=== PATIENT | male | born 1960 | race Hispanic/Latino ===

== ENCOUNTER 2017-11-13 07:49 | Emergency (ER) | payer OTHER ==
[~2017-11-13] VITALS: Ht 175.3 cm; Wt 83.9 kg
[2017-11-13] MEDS ORDERED: KETOROLAC TROMETHAMINE 30 MG/ML VIAL IV STA (08:02)
[2017-11-13] MEDS ORDERED: ONDANSETRON HCL INJ 2 MG/ML VIAL IV STA (08:12)
[2017-11-13 08:17] LABS: BASOPHILS % 0.2 % (0.0-1.0); EOSINOPHILS % 0.2 % (0.0-6.0); HEMATOCRIT 47.7 % (38.2-49.6); LYMPHOCYTES # (AUTO) 2.3 (1.0-3.2); LYMPHOCYTES % 13.3 % (18.0-39.1); MEAN CORPUSCULAR HGB CONC 33.5 g/dL (31-35); MEAN CORPUSCULAR VOLUME 86.6 fL (81-99); MONOCYTES # (AUTO) 0.7 (0.2-0.8); MONOCYTES % 3.9 % (4.4-11.3); NEUTROPHILS # (AUTO) 14.2 (2.1-6.9); NEUTROPHILS % 81.9 % (38.7-80.0); PLATELET COUNT 190 x10e3/uL (140-360); RED BLOOD COUNT 5.51 x10e6/uL (4.3-5.7); RED CELL DISTRIBUTION WIDTH 13.2 % (11.7-14.4)
[2017-11-13 08:34] LABS: CALCIUM 9.4 mg/dL (8.4-10.2); CREATININE, SERUM 1.36 mg/dL (0.72-1.25)
[2017-11-13 08:47] LABS: INR 1.09; PROTHROMBIN TIME 13.3 seconds (11.9-14.5)
[2017-11-13 08:48] LABS: PARTIAL THROMBOPLASTIN TIME 31.2 seconds (23.8-35.5)
[2017-11-13 09:14] LABS: BILIRUBIN,URINE NEGATIVE (NEGATIVE); CLARITY,URINE CLEAR (CLEAR); COLOR,URINE YELLOW (YELLOW); KETONES,URINE NEGATIVE (NEGATIVE); LEUKOCYTE ESTERASE ,URINE NEGATIVE (NEGATIVE); NITRITE,URINE NEGATIVE (NEGATIVE); PROTEIN,URINE DIPSTICK TRACE (NEGATIVE); URINE UROBILINOGEN 0.2 mg/dL (0.2 - 1)
--- NOTE | 2017-11-13 09:15 | Diagnostic Imaging Report ---
EXAM: CT Abdomen and Pelvis WITHOUT contrast INDICATION: \S\Stone Protocol \S\Y COMPARISON: None. TECHNIQUE: Abdomen and pelvis were scanned utilizing a multidetector helical scanner from the lung base to the pubic symphysis without administration of IV contrast. Absence of intravenous contrast decreases sensitivity for detection of focal lesions and vascular pathology. Coronal and sagittal reformations were obtained. Routine protocol was performed. IV CONTRAST: None ORAL CONTRAST: Water COMPLICATIONS: None RADIATION DOSE: Total DLP: 436.95 mGy*cm Estimated effective dose: (DLP x 0.015 x size factor) mSv CTDIvol has been reviewed. It is below the limits set by the Radiation Protocol Committee (RPC). FINDINGS: LINES and TUBES: None. LOWER THORAX: Smooth interlobular septal thickening and groundglass opacities. Trace bilateral pleural effusions. Cardiomegaly. Partially visualized and ICD leads in the right atrium, right ventricle, and coronary sinus. Calcifications at the left ventricular apex may be related to prior infarction. HEPATOBILIARY: No focal hepatic lesions. No biliary ductal dilation. GALLBLADDER: No radio-opaque stones or sludge. No wall thickening. SPLEEN: No splenomegaly. PANCREAS: No focal masses or ductal dilatation. ADRENALS: No adrenal nodules KIDNEYS/URETERS: Mild right hydroureteronephrosis secondary to two adjacent stones at the ureterovesicular junction. The more distal stone measures 0.5 x 0.4 x 0.6 cm. The more proximal stone measures 0.4 x 0.3 x 0.5 cm. Associated right perinephric and periureteral stranding. No additional nonobstructing calculi in either kidney. No left ureteral calculi. No bladder calculi. No suspicious renal contour abnormalities. GI TRACT: No abnormal distention, wall thickening, or evidence of bowel obstruction. Appendix is normal. PELVIC ORGANS/BLADDER: Unremarkable. LYMPH NODES: No lymphadenopathy. 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 Scattered atherosclerotic calcifications. PERITONEUM / RETROPERITONEUM: No free air or fluid. BONES: L5 pars defects with grade 1 to 2 anterolisthesis of L5 on S1.. SOFT TISSUES: Unremarkable. IMPRESSION: 1. Two right ureteral calculi at the ureterovesicular junction result in upstream mild hydroureteronephrosis. 2. Interstitial edema and trace bilateral pleural effusions. Signed by: DR. David Goodwin MD on 11/13/2017 9:12 AM
[2017-11-13 09:32] LABS: CALCIUM OXALATE CRYSTALS,UR MODERATE (FEW); EPITHELIAL CELLS,URINE FEW /LPF; MUCUS,URINE MANY (RARE); WBC,URINE (MAN) 0-5 /HPF (0-5)
[2017-11-13 10:03] VITALS: BP 112/77
[2017-11-13] MEDS ORDERED: HYDROMORPHONE 1MG/1ML INJ IV STA (10:14)
[2017-11-13] MEDS ORDERED: ONDANSETRON HCL INJ 2 MG/ML VIAL IV ONE (11:00)
== END 2017-11-13 10:55 | disposition home or self-care (01) ==
LOC: ER 07:49
DX: R10.31 Right lower quadrant pain (principal); R11.2 Nausea with vomiting, unspecified; I10 Essential (primary) hypertension; E78.5 Hyperlipidemia, unspecified; I48.91 Unspecified atrial fibrillation; Z95.810 Presence of automatic (implantable) cardiac defibrillator
CPT/HCPCS: 36415; 74176; 80048; 81001; 85025; 85610; 85730; 99284; J1170; J1885; J2405

== ENCOUNTER → 2018-08-10 | Day surgery (SDC) | payer OTHER ==
[2018-08-05 11:34] LABS: BASOPHILS % 0.1 % (0.0-1.0); EOSINOPHILS # (AUTO) 0.1 (0.0-0.4); HEMATOCRIT 43.3 % (38.2-49.6); HEMOGLOBIN 14.1 g/dL (14.0-18.0); LYMPHOCYTES # (AUTO) 1.7 (1.0-3.2); MEAN CORPUSCULAR HEMOGLOBIN 29.1 pg (28-32); MEAN CORPUSCULAR HGB CONC 32.6 g/dL (31-35); MEAN CORPUSCULAR VOLUME 89.5 fL (81-99); MONOCYTES # (AUTO) 0.4 (0.2-0.8); MONOCYTES % 5.5 % (4.4-11.3); NEUTROPHILS # (AUTO) 4.5 (2.1-6.9); NEUTROPHILS % 68.1 % (38.7-80.0); PLATELET COUNT 166 x10e3/uL (140-360); RED BLOOD COUNT 4.84 x10e6/uL (4.3-5.7); RED CELL DISTRIBUTION WIDTH 13.5 % (11.7-14.4)
[~2018-08-10] MED LIST: AMIODARONE HCL200 MG; ATORVASTATIN CA20 MG PO; CLOPIDOGREL75 MG PO; FENTANYL CITRATE/PF 100MCG/2 ML INJ ONE; FUROSEMIDE40 MG PO; HYOSCYAMINE SULFATE 0.5 MG/ML INJ ONE; LIDOCAINE HCL 2% LOCAL INJ 5 ML SDV VIAL INJ ONE; LISINOPRIL2.5 MG PO; METOPROLOL SUCC50 MG PO; MIDAZOLAM HCL 2 MG/2 ML VIAL ONE; POTASSIUM CHLO10 ME1 PO; PROPOFOL IV EMULSION 10 MG/ML 50 ML VIAL ONE; XARELTO20 MG
--- OUTSIDE RECORDS SUMMARY | 2018-08-10 08:25 | XMS REPORT | Clinical Summary ---
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 (implantable cardioverter-defibrillato r), biventricular, in situ Active metoprolol succinate TAKE 1 AND 135 tablet 3 (TOPROL XL) 50 mg 1/2 TABLETS 8 extended release BY MOUTH tabletIndications: ICD DAILY (implantable cardioverter-defibrillato r), biventricular, in situ Active amiodarone (CORDARONE) Take two 90 tablet 3 200 mg tabletIndications: tablets every 8 ICD (implantable 12 hours for cardioverter-defibrillato a week, then r) in place one tablet daily. Active clopidogrel (PLAVIX) 75 Take 1 tablet 90 tablet 3 mg tabletIndications: S/P by mouth 8 angioplasty with stent daily. Active lisinopril (PRINIVIL, Take 1 tablet 90 tablet 3 ZESTRIL) 2.5 mg by mouth 8 tabletIndications: daily. Essential hypertension, benign Active atorvastatin (LIPITOR) 40 Take 1 tablet 90 tablet 3 mg tabletIndications: by mouth at 8 Hyperlipidemia, bedtime unspecified nightly. hyperlipidemia type 07/29/2019 Active furosemide (LASIX) 40 mg Take 1 tablet 90 tablet 3 tabletIndications: ICD by mouth 8 (implantable daily. cardioverter-defibrillato r), biventricular, in situ 07/29/2019 Active potassium chloride Take 2 180 tablet 3 (KLOR-CON M10) 10 mEq tablets by 8 extended release mouth daily tabletIndications: ICD When taking (implantable furosemide. cardioverter-defibrillato r), biventricular, in situ 07/29/2018 Discontinued aspirin 81 mg delayed Take 1 tablet 90 tablet 3 release by mouth 7 tabletIndications: daily. Essential hypertension, benign, Systolic congestive heart failure, unspecified congestive heart failure chronicity, Hyperlipidemia, unspecified hyperlipidemia type, S/P angioplasty with stent 11/18/2017 Discontinued metoprolol succinate Take 1 tablet 90 tablet 3 (TOPROL XL) 50 mg by mouth 7 extended release daily. tabletIndications: ICD (implantable cardioverter-defibrillato r), biventricular, in situ 06/06/2018 Discontinued lisinopril (PRINIVIL, Take 1 tablet 90 tablet 3 ZESTRIL) 2.5 mg by mouth 7 tabletIndications: daily. Essential hypertension, benign, Systolic congestive heart failure, unspecified congestive heart failure chronicity 06/06/2018 Discontinued clopidogrel (PLAVIX) 75 Take 1 tablet 90 tablet 3 mg tabletIndications: S/P by mouth 7 angioplasty with stent daily. 06/06/2018 Discontinued atorvastatin (LIPITOR) 40 Take 1 tablet 90 tablet 3 mg tabletIndications: by mouth at 7 Hyperlipidemia, bedtime unspecified nightly. hyperlipidemia type 12/07/2017 Discontinued metoprolol succinate Take 1.5 90 tablet 3 (TOPROL XL) 50 mg tablets by 8 extended release mouth daily. tabletIndications: ICD (implantable cardioverter-defibrillato r), biventricular, in situ 12/07/2017 Discontinued amiodarone (CORDARONE) Take two 90 tablet 3 200 mg tabletIndications: tablets every 8 ICD (implantable 12 hours for cardioverter-defibrillato a week, then r) in place one tablet daily. 06/06/2018 Discontinued amiodarone (CORDARONE) Take two 90 tablet 3 200 mg tabletIndications: tablets every 8 ICD (implantable 12 hours for cardioverter-defibrillato a week, then r) in place one tablet daily. 05/17/2018 Discontinued metoprolol succinate Take 1.5 90 tablet 3 (TOPROL XL) 50 mg tablets by 8 extended release mouth daily. tabletIndications: ICD (implantable cardioverter-defibrillato r), biventricular, in situ 02/25/2018 Discontinued rivaroxaban (XARELTO) 20 Take 1 tablet 90 tablet 1 mg tabletIndications: by mouth 8 Atrial flutter, daily (with unspecified type dinner). 07/29/2018 Discontinued furosemide (LASIX) 40 mg Take 1 tablet 90 tablet 3 tabletIndications: ICD by mouth 8 (implantable daily. cardioverter-defibrillato r), biventricular, in situ 07/29/2018 Discontinued potassium chloride Take 2 180 tablet 3 (KLOR-CON M10) 10 mEq tablets by 8 extended release mouth daily tabletIndications: ICD When taking (implantable furosemide. cardioverter-defibrillato r), biventricular, in situ Active Problems Problem Noted Date Coronary artery disease due to lipid rich plaque 05/23/2015 Essential hypertension, benign 05/23/2015 HLD (hyperlipidemia) 05/23/2015 Systolic congestive heart failure 05/23/2015 AICD (automatic cardioverter/defibrillator) present Inappropriate shocks from implantable cardioverter-defibrillator Ischemic cardiomyopathy Coronary artery disease involving huslia coronary artery of huslia heart without angina pectoris CAD S/P percutaneous coronary angioplasty ICD (implantable cardioverter-defibrillator) discharge Encounters Care Team Description Date Type Specialty Rhina Stoll MD ICD (implantable cardioverter-defibrillator), biventricular, in situ (Primary Dx) 07/29/2018 Office Visit Cardiology Lissett Payne MD ICD (implantable cardioverter-defibrillator) in place; S/P angioplasty with stent; Essential hypertension, benign; Hyperlipidemia, unspecified hyperlipidemia type; ICD (implantable cardioverter-defibrillator), biventricular, in situ; Atrial flutter, unspecified type 06/06/2018 Refill Cardiology Lissett Payne MD S/P angioplasty with stent; Essential hypertension, benign; Systolic congestive heart failure; ICD (implantable cardioverter-defibrillator) in place; Hyperlipidemia, unspecified hyperlipidemia type 06/02/2018 Refill Cardiology Gissell Linn MD ICD (implantable cardioverter-defibrillator), biventricular, in situ (Primary Dx) 05/27/2018 Office Visit Cardiology Lissett Payne MD ICD (implantable cardioverter-defibrillator), biventricular, in situ 05/17/2018 Refill Cardiology Rolf Greenberg Medication Refill (rivaroxaban (XARELTO) 20 needs to be E-scribed to [phone] [facility] - [address]) 03/11/2018 Telephone Cardiology Amy Culver Other (rivaroxaban (XARELTO) 20 mg tablet per pt [facility] sent dr cid an email, regarding medication since dr cid did not respond / [facility] did not fill. ) 03/09/2018 Telephone Cardiology Rhina Stoll MD Atrial flutter, unspecified type (Primary Dx); ICD (implantable cardioverter-defibrillator), biventricular, in situ 02/25/2018 Office Visit Cardiology Lissett Payne MD ICD (implantable cardioverter-defibrillator) in place; ICD (implantable cardioverter-defibrillator), biventricular, in situ 12/07/2017 Refill Cardiology Rolf Greenberg Medication Refill (metoprolol succinate (TOPROL XL) 50 mg,amiodarone (CORDARONE) 200 mg tablet to [facility] [phone]) 12/07/2017 Telephone Cardiology Rhina Stoll MD ICD (implantable cardioverter-defibrillator), biventricular, in situ 11/23/2017 Refill Amy Culver Medication Refill (amiodarone (CORDARONE) 150 mg); Medication Refill (metoprolol succinate (TOPROL XL) 50 mg extended release tablet); Other (per pt dr cid was starting him again on amiodarone / and dr payne was increaseing his metoprolol to 75 mg pt needs rx sent thru [facility] ) 11/23/2017 Telephone Cardiology Rhina Stoll MD ICD (implantable cardioverter-defibrillator) in place (Primary Dx) 11/19/2017 Office Visit Cardiology Lissett Payne MD ICD (implantable cardioverter-defibrillator), biventricular, in situ 11/18/2017 Office Visit Cardiology [place], DEBBIE Follow-up 11/01/2017 Telephone Cardiology Gissell Linn MD ICD (implantable cardioverter-defibrillator), biventricular, in situ (Primary Dx) 10/22/2017 Office Visit Cardiology after 08/09/2017 Immunizations Name Dates Previously Given Next Due Influenza Vaccine 07/18/2015 PPV 23 Pneumococcal 05/23/2015 Polysaccaride Family History Medical History Relation Name Comments Hypertension Father Stroke Father Cancer Maternal unk type Grandmother Diabetes neg hx Heart neg hx Lipids neg hx Relation Name Status Comments Father Alive Maternal Grandmother Mother Alive Social History Date Tobacco Use Types Packs/Day Years Used Quit: 05/23/1999 Former Smoker Cigarettes 0.5 10 Smokeless Tobacco: Never Used Tobacco Cessation: Counseling Given: No Alcohol Use Drinks/Week oz/Week Comments No Sex Assigned at Date Recorded Not on file Industry Job Start Date Occupation Not on file Not on file Not on file Travel End Travel History Travel Start No recent travel history available. Last Filed Vital Signs Time Taken Vital Sign Reading 07/29/2018 9:59 AM [employer] Blood Pressure 116/78 07/29/2018 9:59 AM [employer] SCH[employer]ER Pulse 62 07/29/2018 9:59 AM [employer] SCHED[employer]ER Temperature 36.6 C (97.8 F) 07/29/2018 9:59 AM CREW SCHEDULER Respiratory Rate 18 07/29/2018 9:59 AM CREW SCHEDULER Oxygen Saturation 99% - Inhaled Oxygen - Concentration 07/29/2018 9:59 AM CREW SCHEDULER Weight 85.7 kg (189 lb) 07/29/2018 9:59 AM CREW SCHEDULER Height 175.3 cm (5' 9") 07/29/2018 9:59 AM CREW SCHEDULER Body Mass Index 27.91 Plan of Treatment Care Team Description Date Type Specialty Lissett Payne MD [address] [place] [address] [phone] per [place] 09/01/2018 Office Visit Cardiology Health Maintenance Due Date Last Done Comments Colorectal Cancer Scrn 2009 Annual (FIT/FOBT) Age 50 to 75 CORONARY ARTERY DISEASE 05/29/2016 05/29/2015 AGE 18 AND UP IMM Influenza Seasonal 05/16/2018 Oct to October (>/=19 yrs) Procedures Comments Procedure Name Priority Date/Time Associated Diagnosis TSH Routine 03/02/2018 8:45 AM CDT LIVER PROFILE Routine 03/02/2018 Atrial flutter, 8:45 AM CDT unspecified type BMP POC Routine 02/25/2018 9:42 AM CDT after 08/09/2017 Results * TSH (03/02/2018 8:45 AM CDT) TSH 4.45 (H) 0.57 - 3.74 uIU/mL BT MAIN-STATION 1 Specimen Blood Performing Organization Address [facility] Phone Number MISYS BT MAIN-STATION 1 * LIVER PROFILE (03/02/2018 8:45 AM CDT) T Protein 6.9 6.0 - 8.3 g/dL BT MAIN-STATION 1 Albumin 4.4 4.2 - 5.5 g/dL BT MAIN-STATION 1 T Bilirubin 0.8 0.2 - 1.2 mg/dL BT MAIN-STATION 1 Alk Phos 69 34 - 104 U/L BT MAIN-STATION 1 AST 17 13 - 39 U/L BT MAIN-STATION 1 ALT 17 7 - 52 U/L BT MAIN-STATION 1 D Bilirubin 0.2 0.0 - 0.2 mg/dL BT MAIN-STATION 1 Specimen Blood Performing Organization Address [facility] Phone Number MISYS BT MAIN-STATION 1 * BMP POC (02/25/2018 9:42 AM CDT) CO2 POC 24 21 - 32 mmol/L BT MAIN-STATION 1 Chloride POC 104 98 - 107 mmol/L BT MAIN-STATION 1 Potassium POC 4.5 3.50 - 5.10 mmol/L BT MAIN-STATION 1 Sodium POC 138 136 - 145 mmol/L BT MAIN-STATION 1 Glucose POC 101 74 - 106 mg/dL BT MAIN-STATION 1 Urea Nitrogen 18 7 - 18 mg/dL BT MAIN-STATION POC 1 Creatinine POC 1.1 0.6 - 1.3 mg/dL BT MAIN-STATION 1 Calcium Ionized 1.09 (L) 1.15 - 1.29 mmol/L BT MAIN-STATION POC 1 Hemoglobin POC 16.3 14.0 - 18.0 g/dL BT MAIN-STATION 1 Hematocrit POC 48.0 40.0 - 54.0 % BT MAIN-STATION 1 GFR, Estimated >60 mL/min/1.73 m2 BT MAIN-STATION 1 GFR, Estim, >60 mL/min/1.73 m2 BT MAIN-STATION Afr-Am 1 Performing Organization Address City/State/Zipcode Phone Number MISYS BT MAIN-STATION 1 after 08/09/2017 Insurance Type Payer Benefit Subscriber ID Effective Phone Address Plan / Dates Group [facility] xxxxxxxxx 2017-P [phone] [id number] [place] [address] Advance Directives For more information, please contact: [address] [address] Date Inactivated Comments Code Status Date Activated 10/24/2015 2:00 PM Full Code 10/23/2015 12:35 AM
--- OUTSIDE RECORDS SUMMARY | 2018-08-10 08:25 | XMS REPORT ---
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 Allergies, Adverse Reactions, Alerts This patient has no known allergies or adverse reactions. Medications This patient has no known medications. Encounters Start Date/Time End Date/Time Encounter Type Admission Type Attending [facility] Care Facility Care Department Encounter ID 2018-09-01 00:00:00 2018-09-01 00:00:[address] [facility] [id number] 2018-07-29 09:52:50 2018-07-29 09:52:[address] [facility] [id number] 2018-06-24 00:00:00 2018-06-24 00:00:[address] [facility] [id number] 2018-05-27 06:47:31 2018-05-27 06:47:[address] [facility] [id number] 2018-03-11 00:00:00 2018-03-11 00:00:[address] [facility] [id number] 2018-03-02 08:43:22 2018-03-02 08:43:[address] [facility] [id number] 2018-02-25 08:07:13 2018-02-25 08:07:[address] [facility] [id number] 2018-02-25 00:00:00 2018-02-25 00:00:[address] [facility] [id number] 2017-11-26 00:00:00 2017-11-26 00:00:[address] [facility] [id number] 2017-11-19 09:33:36 2017-11-19 09:33:[address] [facility] [id number] 2017-11-18 09:31:23 2017-11-18 09:31:[address] [facility] [id number] 2017-11-05 00:00:00 2017-11-05 00:00:[address] [facility] [id number] 2017-10-22 07:36:02 2017-10-22 07:36:[address] [facility] [id number] 2017-06-25 07:37:27 2017-06-25 07:37:[address] [facility] [id number] 2017-05-27 11:39:24 2017-05-27 11:39:[address] [facility] [id number] 2017-05-27 09:53:06 2017-05-27 09:53:[address] [facility] [id number] 2017-05-27 00:00:00 2017-05-27 00:00:[address] [facility] [id number] 2017-02-26 07:38:16 2017-02-26 07:38:[address] [facility] [id number] 2017-02-09 06:50:46 2017-02-09 06:50:[address] [facility] [id number] Results Test Description Test Time Test Comments Text Results Atomic Results Result Comments CT ABDOMEN/PELVIS WO [place] [address] Patient Name: KYLIE VALDEZ MR #: [id number] : 1960 Age/Sex: 57/M Req #: [id number] Adm Physician: Ordered by: ISAIAS SILVA MD Report #: [id number] Location: ER Room/Bed: Procedure: [id number] CT/CT ABDOMEN/PELVIS WO Exam Date: 11/13/17 Exam Time: 824 REPORT STATUS: Signed EXAM: CT Abdomen and Pelvis WITHOUT contrast INDICATION: COMPARISON: None. TECHNIQUE: Abdomen and pelvis were scanned utilizing a multidetector helical scanner from the lung base to the pubic symphysis without administration of IV contrast. Absence of intravenous contrast decreases sensitivity for detection of focal lesions and vascular pathology. Coronal and sagittal reformations were obtained. Routine protocol was performed. IV CONTRAST: None ORAL CONTRAST: Water COMPLICATIONS: None RADIATION DOSE: Total DLP: 436.95 mGy*cm Estimated effective dose: (DLP x 0.015 x size factor) mSv CTDIvol has been reviewed. It is below the limits set by the Radiation Protocol Committee (RPC). FINDINGS: LINES and TUBES: None. LOWER THORAX: Smooth interlobular septal thickening and groundglass opacities. Trace bilateral pleural effusions. Cardiomegaly. Partially visualized and ICD leads in the right atrium, right ventricle, and coronary sinus. Calcifications at the left ventricular apex may be related to prior infarction. HEPATOBILIARY: No focal hepatic lesions. No biliary ductal dilation. GALLBLADDER: No radio- opaque stones or sludge. No wall thickening. SPLEEN: No splenomegaly. PANCREAS: No focal masses or ductal dilatation. ADRENALS: No adrenal nodules KIDNEYS/URETERS: Mild right hydroureteronephrosis secondary to two adjacent stones at the ureterovesicular junction. The more distal stone measures 0.5 x 0.4 x 0.6 cm. The more proximal stone measures 0.4 x 0.3 x 0.5 cm. Associated right perinephric and periureteral stranding. No additional nonobstructing calculi in either kidney. No left ureteral calculi. No bladder calculi. No suspicious renal contour abnormalities. GI TRACT: No abnormal distention, wall thickening, or evidence of bowel obstruction. Appendix is normal. PELVIC ORGANS/BLADDER: Unremarkable. LYMPH NODES: No lymphadenopathy. 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 Scattered atherosclerotic calcifications. PERITONEUM / RETROPERITONEUM: No free air or fluid. BONES: L5 pars defects with grade 1 to 2 anterolisthesis of L5 on S1.. SOFT TISSUES: Unremarkable. IMPRESSION: 1. Two right ureteral calculi at the ureterovesicular junction result in upstream mild hydroureteronephrosis. 2. Interstitial edema and trace bilateral pleural effusions. Signed by: DR. David Manley MD on 11/13/2017 9:12 AM Dictated By: DAVID MANLEY MD 1 Transcribed By: ILENE on 11/13/17911 COPY TO: ISAIAS SILVA MD
[2018-08-10 11:00] VITALS: BP 128/85
--- NOTE | 2018-08-10 11:16 | Operative Report ---
DATE OF PROCEDURE: August 10, 2018 REFERRING PHYSICIAN: Dr. Ti Valdovinos PROCEDURE PERFORMED: Colonoscopy and polypectomy. INDICATIONS FOR COLONOSCOPY: Colorectal cancer screening. MEDICATION: Patient was done under MAC. Please see anesthesiologist's note. PROCEDURE: With the patient in the left lateral decubitus position, the flexible fiberoptic Olympus colonoscope was inserted into the rectum with ease and advanced all the way to the cecum. Mucosa overlying the cecum appeared to be within normal limits. One minute polyp was hot biopsied from the ascending colon. The transverse colon appeared to be within normal limits. One minute polyp was hot biopsied from the descending colon. The sigmoid colon appeared to be within normal within normal limits. One polyp was snared from the rectum. The scope was then retroflexed into the distal rectum, and small internal hemorrhoids were noted, none of which was actively bleeding. The scope was then straightened out. It was subsequently withdrawn. Patient tolerated the procedure well. IMPRESSION 1. Minute polyp, ascending colon, hot biopsied. 2. Minute polyp, descending colon, hot biopsied. 3. Rectal polyp, snared. 4. Internal hemorrhoids, none actively bleeding. PLAN: Follow up histology. Initiate high-fiber, low-fat diet. Initiate high-fiber supplement. Patient might benefit from a followup colonoscopy in 3 to 5 years. Job#: [id number] cc:TI VALDOVINOS MD
== END | disposition home or self-care (01) ==
LOC: OR 08:23
PROVIDERS: ATTEND Internal Medicine Gastroenterology
DX: Z12.11 Encounter for screening for malignant neoplasm of colon (principal); D12.8 Benign neoplasm of rectum; K63.5 Polyp of colon; K64.8 Other hemorrhoids; I25.2 Old myocardial infarction; I50.9 Heart failure, unspecified; Z01.810 Encounter for preprocedural cardiovascular examination; Z01.812 Encounter for preprocedural laboratory examination; Z79.02 Long term (current) use of antithrombotics/antiplatelets; Z95.0 Presence of cardiac pacemaker
CPT/HCPCS: 36415; 45384; 45385; 85025; 93005; J1980; J2001; J2250

== ENCOUNTER 2024-10-19 11:29 | Emergency (ER) | payer MEDICARE, MEDICAID ==
[~2024-10-19] VITALS: Ht 172.7 cm; Wt 72.6 kg
[~2024-10-19 11:29] MED LIST changes: -FENTANYL CITRATE/PF 100MCG/2 ML INJ ONE; -HYOSCYAMINE SULFATE 0.5 MG/ML INJ ONE; -LIDOCAINE HCL 2% LOCAL INJ 5 ML SDV VIAL INJ ONE; -MIDAZOLAM HCL 2 MG/2 ML VIAL ONE; -PROPOFOL IV EMULSION 10 MG/ML 50 ML VIAL ONE
[2024-10-19 11:40] VITALS: TEMP 98.3
[2024-10-19 12:12] LABS: BASOPHILS % 0.3 % (0.0-1.0); EOSINOPHILS # (AUTO) 0.1 (0.0-0.4); HEMATOCRIT 41.1 % (38.2-49.6); HEMOGLOBIN 13.2 g/dL (14.0-18.0); LYMPHOCYTES # (AUTO) 1.5 (1.0-3.2); LYMPHOCYTES % 19.3 % (18.0-39.1); MEAN CORPUSCULAR HEMOGLOBIN 27.1 pg (28-32); MEAN CORPUSCULAR HGB CONC 32.1 g/dL (31-35); MEAN CORPUSCULAR VOLUME 84.4 fL (81-99); MONOCYTES # (AUTO) 0.4 (0.2-0.8); MONOCYTES % 5.5 % (4.4-11.3); NEUTROPHILS # (AUTO) 5.8 (2.1-6.9); NEUTROPHILS % 73.6 % (38.7-80.0); PLATELET COUNT 148 x10e3/uL (140-360); RED BLOOD COUNT 4.87 x10e6/uL (4.3-5.7); RED CELL DISTRIBUTION WIDTH 15.7 % (11.7-14.4); WHITE BLOOD COUNT 7.82 x10e3/uL (4.8-10.8)
[2024-10-19 12:26] LABS: CORONAVIRUS COVID-19 AG NEGATIVE (NEGATIVE); INFLUENZA A AG NEGATIVE (NEGATIVE); INFLUENZA B AG NEGATIVE (NEGATIVE)
[2024-10-19 13:00] LABS: ALBUMIN 3.9 g/dL (3.5-5.0); ALBUMIN/GLOBULIN RATIO 1.3 (0.8-2.0); ANION GAP 14.8 mmol/L (8-16); BILIRUBIN,TOTAL 1.5 mg/dL (0.2-1.2); CALCIUM 8.8 mg/dL (8.4-10.2); CREATININE, SERUM 0.89 mg/dL (0.72-1.25); POTASSIUM 3.8 mmol/L (3.5-5.1); TOTAL PROTEIN 6.9 g/dL (6.5-8.1)
[2024-10-19 13:07] LABS: TROPONIN I 0.029 ng/mL (0-0.300)
[2024-10-19 13:40] VITALS: PULSE 72; RESP 16; O2SAT 99
== END 2024-10-19 13:50 | disposition home or self-care (01) ==
LOC: ER 11:39
DX: R06.00 Dyspnea, unspecified (principal); I10 Essential (primary) hypertension; I50.9 Heart failure, unspecified; I48.91 Unspecified atrial fibrillation; E78.5 Hyperlipidemia, unspecified; F41.9 Anxiety disorder, unspecified; Z11.52 Encounter for screening for COVID-19; I25.2 Old myocardial infarction; Z95.810 Presence of automatic (implantable) cardiac defibrillator; Z95.5 Presence of coronary angioplasty implant and graft; Z86.73 Personal history of transient ischemic attack (TIA), and cerebral infarction without residual deficits; Z87.442 Personal history of urinary calculi
CPT/HCPCS: 36415; 71045; 80053; 82550; 83690; 83880; 84484; 85025; 93005; 99283

== ENCOUNTER 2025-03-15 12:00 | Emergency (ER) | payer MEDICARE, MEDICAID ==
[~2025-03-15] VITALS: Ht 172.7 cm; Wt 72.6 kg
[2025-03-15 12:34] VITALS: PULSE 72; RESP 18; TEMP 97.7; O2SAT 100
== END 2025-03-15 13:01 | disposition home or self-care (01) ==
LOC: ER 13:00
DX: R11.2 Nausea with vomiting, unspecified (principal); R19.7 Diarrhea, unspecified; I10 Essential (primary) hypertension; I50.9 Heart failure, unspecified; E78.5 Hyperlipidemia, unspecified; I48.91 Unspecified atrial fibrillation; F41.9 Anxiety disorder, unspecified; I25.2 Old myocardial infarction; Z95.5 Presence of coronary angioplasty implant and graft; Z95.810 Presence of automatic (implantable) cardiac defibrillator; Z87.442 Personal history of urinary calculi
CPT/HCPCS: 99282